=== PATIENT | female | born 1955 | race Caucasian/White ===

== ENCOUNTER 2020-09-29 11:22 | Inpatient (IN) | payer BC, MEDICARE ==
[2020-09-29] MEDS ORDERED: Sodium Chloride 0.9% 1000 ML 1,000 ML IV SCH (12:15)
[2020-09-29 12:38] LABS: ALKALINE PHOSPHATASE 57 U/L (38-126); ANION GAP 17.1 MEQ/L (5-15); BLOOD UREA NITROGEN 9 mg/dL (7-17); CHLORIDE 98 mmol/L (98-107); Calcium 9.2 mg/dL (8.4-10.2); Carbon Dioxide 21 mmol/L (22-30); Creatinine 1 0.55 mg/dL (0.52-1.04); EST GLOMERULAR FILTRATION RATE > 60.0 ML/MIN; Glucose 123 mg/dL (74-106); LDH-LACTATE DEHYDROGENASE 383 U/L (120-246); Potassium 3.8 mmol/L (3.5-5.1); SGOT/AST 50 U/L (14-36); SGPT/ALT 25 U/L (0-35); SODIUM 133 mmol/L (137-145); Total Protein 7.6 g/dL (6.3-8.2)
--- NOTE | 2020-09-29 12:40 | XRAY ---
Indication: Short of breath and cough. Positive Covid 19. Comparison: None Portable chest demonstrates small right base calcified granuloma. Remaining heart and lungs unremarkable. Bony thorax intact. Impression: Nonacute chest. Incidental old granulomatous disease.
[2020-09-29 13:00] LABS: Hematocrit 37.1 % (35-47); Hemoglobin 11.7 gm/dl (12.0-16.0); Mean Cell Volume 85.5 fl (78-100); Mean Corpuscular Hgb Concent. 31.5 g/dl (32-36); Mean Platelet Volume 10.7 fl (7.5-11.0); Platelet Count 282 K/mm3 (150-450); Red Blood Count 4.34 M/mm3 (4.1-5.4); Red Cell Distribution Width 14.4 % (11.5-14.0); White Blood Count 8.9 K/mm3 (4.0-10.5)
--- NOTE | 2020-09-29 13:04 | ERPHSYRPT ---
- History of Present Illness Time Seen by Provider: 09/29/20 12:10 Source: patient Exam Limitations: no limitations Patient Subjective Stated Complaint: pt here for covid,she is sob, cough, fever since 09/21/2020. Triage Nursing Assessment: pt alert, resp easy, skin w/d/p. face mask in place, abd soft, no edema noted, Physician History: This is a 65-year-old white female history of elevated cholesterol and hypertension who was diagnosed with COVID-19 infection on 09/21/2020. In the last week or so her symptoms of sore throat, cough and shortness of breath have increased. Patient arrives from home and had a room air oxygenation level of 89%. When 2 L oxygen was placed upon her her oxygen saturation went up to 95%. She is mildly tachycardic. She has no nausea vomiting or diarrhea. She has no chest pain. She has no fever. Patient's is very ill and is on a ventilator with COVID-19 infection. Timing/Duration: today Activities at Onset: none Severity of Dyspnea-Max: moderate Possible Cause: no prior episodes Modifying Factors: Improves With: activity (Worsens), oxygen (Improves) Home Medications: Atorvastatin Calcium 1 ea DAILY 09/29/20 [History] lisinopriL [Lisinopril] 09/29/20 [History] Hx Influenza Vaccination/Date Given: Yes Hx Pneumococcal Vaccination/Date Given: No Immunizations Up to Date: Yes Travel Risk - International Travel Have you traveled outside of the country in past 3 weeks: No - Coronavirus Screening Symptoms: Fever, Cough: New Onset, Shortness of Breath Close contact with a COVID-19 positive Pt in past 14-21 Days: Yes - Vaccine Status Have you recieved a Covid-19 vaccination: No - Review of Systems Constitutional: Weakness Eyes: No Symptoms (Mild) Ears, Nose, & Throat: No Symptoms Respiratory: Cough, Dyspnea Cardiac: No Symptoms Abdominal/Gastrointestinal: No Symptoms Genitourinary Symptoms: No Symptoms Musculoskeletal: No Symptoms Skin: No Symptoms Neurological: No Symptoms Psychological: No Symptoms Endocrine: No Symptoms Hematologic/Lymphatic: No Symptoms Immunological/Allergic: No Symptoms All Other Systems: Reviewed and Negative - Past Medical History Pertinent Past Medical History: Yes Cardiac History: High Cholesterol, Hypertension - Past Surgical History Past Surgical History: No - Social History Smoking Status: Never smoker Exposure to second hand smoke: No Drug Use: none Patient Lives Alone: No - Female History Hx Last Menstrual Period: post - Nursing Vital Signs Nursing Vital Signs: Initial Vital Signs Temperature 97.2 F 09/29/20 11:45 Pulse Rate 113 H 09/29/20 11:45 Respiratory Rate 20 09/29/20 11:45 Blood Pressure 136/104 09/29/20 11:45 O2 Sat by Pulse Oximetry 89 L 09/29/20 11:45 Pain Scale Pain Intensity 0 - Physical Exam General Appearance: mild distress, alert, anxiety Eye Exam: PERRL/EOMI, eyes nml inspection Ears, Nose, Throat Exam: hearing grossly normal, normal ENT inspection, normal pharynx Neck Exam: normal inspection, non-tender, supple, full range of motion Respiratory Exam: normal breath sounds, lungs clear, airway intact, No chest tenderness, No respiratory distress Cardiovascular/Chest Exam: tachycardia Abdominal/Gastrointestinal Exam: soft, normal bowel sounds, No tenderness Extremity Exam: non-tender, normal range of motion, normal inspection, normal capillary refill, no calf tenderness, no pedal edema, pelvis stable Neurologic Exam: alert, oriented x 3, cooperative, lab tech II-XII nml as tested, normal mood/affect, nml cerebellar function, nml station & gait, sensation nml Skin Exam: normal color, warm, dry Lymphatic Exam: No adenopathy SpO2 Interpretation: normal SpO2: 96 O2 Delivery: Nasal Cannula - Course Nursing assessment & vital signs reviewed: Yes EKG Interpreted by Me: RATE ([id number]), Sinus Tach, NORMAL AXIS, NORMAL INTERVALS, NORMAL QRS, NORMAL ST-T, Other (No acute ischemic changes. No comparison EKG available.) Ordered Tests: Active Orders 24 hr Category Date Time Status Cupboard Builder STAT Care 09/29/20 12:08 Active EKG-ER Only STAT Care 09/29/20 12:07 Active EKG-ER Only STAT Care 09/29/20 12:07 Active IV Insertion STAT Care 09/29/20 12:07 Active Isolation, Initiate & Maintain STAT Care 09/29/20 12:07 Active Pulse Oximetry (ED) ROUTINE Care 09/29/20 12:08 Active Pulse Oximetry (ED) STAT Care 09/29/20 12:07 Active CHEST 1 VIEW (PORTABLE) Stat Exams 09/29/20 12:07 Completed BLOOD CULTURE Stat Lab 09/29/20 12:45 Received CBC W DIFF Stat Lab 09/29/20 12:00 Completed CMP Stat Lab 09/29/20 12:00 Completed Ferritin Stat Lab 09/29/20 12:00 Completed LDH-LACTATE DEHYDROGENASE Stat Lab 09/29/20 12:00 Completed Lactic Acid Stat Lab 09/29/20 12:25 Completed Manual Differential NC Stat Lab 09/29/20 12:00 Completed Evangeline Screen Stat Lab 09/29/20 12:00 Completed TROPONIN Q3H Lab 09/29/20 12:00 Completed TROPONIN Q3H Lab 09/29/20 15:15 Ordered TROPONIN Q3H Lab 09/29/20 18:15 Ordered TROPONIN Q3H Lab 09/29/20 21:15 Ordered TROPONIN Q3H Lab 09/30/20 00:15 Ordered Medication Summary Generic Name Dose Route Start Last Admin Trade Name Freq PRN Reason Stop Dose Admin Sodium Chloride 1,000 mls @ 50 mls/hr 09/29/20 12:15 09/29/20 12:22 Sodium Chloride 0.9% 1000 Ml IV 10/29/20 12:14 50 mls/hr .Q20H MALCOLM Administration Lab/Rad Data: Laboratory Result Diagrams 09/29/20 12:00 09/29/20 12:00 Laboratory Results 09/29/20 09/29/20 09/29/20 Range/Units 12:25 12:00 12:00 WBC (4.0-10.5) K/mm3 RBC (4.1-5.4) M/mm3 Hgb (12.0-16.0) gm/dl Hct (35-47) % MCV (78-100) fl MCH (26-32) pg MCHC (32-36) g/dl RDW (11.5-14.0) % Plt Count (150-450) K/mm3 MPV (7.5-11.0) fl Sodium (137-145) mmol/L Potassium (3.5-5.1) mmol/L Chloride (98-107) mmol/L Carbon Dioxide (22-30) mmol/L Anion Gap (5-15) MEQ/L BUN (7-17) mg/dL Creatinine (0.52-1.04) mg/dL Estimated GFR ML/MIN Glucose (74-106) mg/dL Lactic Acid 1.5 (0.4-2.0) Calcium (8.4-10.2) mg/dL Ferritin 730 H (11.1-264) ng/mL Total Bilirubin (0.2-1.3) mg/dL AST (14-36) U/L ALT (0-35) U/L Alkaline Phosphatase (38-126) U/L Lactate Dehydrogenase (120-246) U/L Troponin I (0.000-0.034) ng/mL Serum Total Protein (6.3-8.2) g/dL Albumin (3.5-5.0) g/dL Monoscreen POSITIVE (Negative) 09/29/20 09/29/20 09/29/20 Range/Units 12:00 12:00 12:00 WBC 8.9 (4.0-10.5) K/mm3 RBC 4.34 (4.1-5.4) M/mm3 Hgb 11.7 L (12.0-16.0) gm/dl Hct 37.1 (35-47) % MCV 85.5 (78-100) fl MCH 27.0 (26-32) pg MCHC 31.5 L (32-36) g/dl RDW 14.4 H (11.5-14.0) % Plt Count 282 (150-450) K/mm3 MPV 10.7 (7.5-11.0) fl Sodium 133 L (137-145) mmol/L Potassium 3.8 (3.5-5.1) mmol/L Chloride 98 (98-107) mmol/L Carbon Dioxide 21 L (22-30) mmol/L Anion Gap 17.1 H (5-15) MEQ/L BUN 9 (7-17) mg/dL Creatinine 0.55 (0.52-1.04) mg/dL Estimated GFR > 60.0 ML/MIN Glucose 123 H (74-106) mg/dL Lactic Acid (0.4-2.0) Calcium 9.2 (8.4-10.2) mg/dL Ferritin (11.1-264) ng/mL Total Bilirubin 0.60 (0.2-1.3) mg/dL AST 50 H (14-36) U/L ALT 25 (0-35) U/L Alkaline Phosphatase 57 (38-126) U/L Lactate Dehydrogenase 383 H (120-246) U/L Troponin I < 0.012 (0.000-0.034) ng/mL Serum Total Protein 7.6 (6.3-8.2) g/dL Albumin 4.0 (3.5-5.0) g/dL Monoscreen (Negative) - Progress Progress: improved, re-examined Air Movement: fair Progress Note: 09/29/20 14:42 Chest x-ray shows no acute cardiopulmonary process Blood Culture(s) Obtained: Yes Discussed with : Martinez Counseled pt/family regarding: lab results, diagnosis, need for follow-up, rad results - Departure Departure Disposition: In-patient Admission Clinical Impression: COVID-19 virus infection, Hypoxia Condition: Fair Critical Care Time: Yes Critical Care Time(excluding separately billable procedures): Critical 30-74 mins Referrals: HENRIETTA BIRD MD [Primary Care Provider] -
[2020-09-29] MEDS ORDERED: Zofran 4 MG/2 ML VIAL IV PRN (15:48)
[2020-09-29] MEDS ORDERED: REMDESIVIR 200 MG in Sodium Chloride 0.9% 250 ML 250 ML IV ONE ×2 (15:48→16:15)
[2020-09-29 16:07] LABS: BAND 1 % (0.0-2.0); Eosinophil 1 % (0.00-3.0); Lymphocytes 10 % (24-44); Monocyte 1 % (0.0-12.0); Neutrophils 87 % (36.0-66.0); Platelet Estimate NORMAL (NORMAL); Total Cells Counted 100; Toxic Granulation 1+
[2020-09-29] MEDS: Sodium Chloride 0.9% 1000 ML 1,000 ML IV SCH (16:56)
[2020-09-29] MEDS: Zestril 10 MG PO SCH (17:17)
[2020-09-29] MEDS: Zocor 10MG PO SCH (17:17)
[2020-09-29] MEDS: TYLENOL 325 MG PO PRN ×2 (17:18→21:27)
[2020-09-29] MEDS: DECADRON 10MG INJ. IV SCH (21:27)
[2020-09-30 05:24] LABS: Absolute Neutrophil Ct (ANC) 4.94 (1.4-6.9); BASOPHIL % 0.2 % (0.0-0.4); Basophil (Absolute #) 0.01 (0-0.4); Eosinophil (Absolute #) 0 (0-0.5); Hematocrit 39.2 % (35-47); Hemoglobin 12.3 gm/dl (12.0-16.0); Lymphocyte (Absolute #) 0.63 (1.0-4.6); Lymphocytes % 11.1 % (24.0-44.0); Mean Cell Volume 86.5 fl (78-100); Mean Corpuscular Hemoglobin 27.2 pg (26-32); Mean Corpuscular Hgb Concent. 31.4 g/dl (32-36); Mean Platelet Volume 10.5 fl (7.5-11.0); Monocytes % 1.8 % (0.0-12.0); Neutrophil % 86.9 % (36.0-66.0); Platelet Count 316 K/mm3 (150-450); Red Blood Count 4.53 M/mm3 (4.1-5.4); Red Cell Distribution Width 14.5 % (11.5-14.0); White Blood Count 5.7 K/mm3 (4.0-10.5)
[2020-09-30 05:40] LABS: ALBUMIN 3.8 g/dL (3.5-5.0); ALKALINE PHOSPHATASE 59 U/L (38-126); ANION GAP 13.9 MEQ/L (5-15); BLOOD UREA NITROGEN 9 mg/dL (7-17); CHLORIDE 106 mmol/L (98-107); Calcium 8.6 mg/dL (8.4-10.2); Carbon Dioxide 22 mmol/L (22-30); Creatinine 1 0.51 mg/dL (0.52-1.04); EST GLOMERULAR FILTRATION RATE > 60.0 ML/MIN; Glucose 182 mg/dL (74-106); Potassium 4.2 mmol/L (3.5-5.1); SGOT/AST 47 U/L (14-36); SGPT/ALT 28 U/L (0-35); SODIUM 138 mmol/L (137-145); Total Protein 7.3 g/dL (6.3-8.2)
[2020-09-30] MEDS: DECADRON 10MG INJ. IV SCH ×2 (09:03→21:02)
[2020-09-30] MEDS: Sodium Chloride 0.9% 1000 ML 1,000 ML IV SCH (09:03)
[2020-09-30] MEDS: ROCEPHIN 1 Gm-D5w 50 ml Bag** 1 G/50 ML IVPB IV SCH (11:08)
--- NOTE | 2020-09-30 11:28 | XRAY ---
Indication: Short of breath. Positive Covid 19. Multiple contiguous axial images obtained through the chest prior to and following 80 cc Isovue 370 contrast. Comparison: None There is moderate diffuse bilateral peripheral groundglass airspace disease greatest in both lower lobes. No consolidation or effusion. Subcentimeter right lower lobe calcified granuloma. Heart not enlarged. Aorta is normal in course and caliber. No pathologic mediastinal/hilar lymphadenopathy. Bony thorax intact with minimal degenerative changes throughout the spine. Limited upper abdomen demonstrates mild fatty liver and a few tiny hepatic/splenic calcified granulomas. Impression: 1. Diffuse bilateral peripheral groundglass airspace disease. Commonly reported imaging features of Covid 19 pneumonia are present. Other processes such as influenza pneumonia and organizing pneumonia, as can be seen with drug toxicity and connective tissue disease, can cause a similar imaging pattern. 2. Incidental fatty liver and old granulomatous disease.
--- NOTE | 2020-09-30 12:45 | PCM.HP ---
History of Present Illness - Chief Complaint Chief Complaint: shortness of breath for 2-3 days History of Present Illness: is a 65 year old female.history of elevated cholesterol and hypertension who was diagnosed with COVID-19 infection on 09/21/2020. In the last week or so her symptoms of sore throat, cough and shortness of breath have increased. Patient arrives from home and had a room air oxygenation level of 89%. When 2 L oxygen was placed upon her her oxygen saturation went up to 95%. She is mildly tachycardic. She has no nausea vomiting or diarrhea. She has no chest pain. She has no fever. Patient's is very ill and is on a ventilator with COVID-19 infection. - Review of Systems Constitutional: No Fever, No Chills Eyes: No Symptoms Ears, Nose, & Throat: No Symptoms Respiratory: Cough, Orthopnea, Short Of Breath, Wheezing Cardiac: No Chest Pain, No Edema, No Syncope Abdominal/Gastrointestinal: No Abdominal Pain, No Nausea, No Vomiting, No Diarrhea Genitourinary Symptoms: No Dysuria Musculoskeletal: No Back Pain, No Neck Pain Skin: No Rash Neurological: No Dizziness, No Focal Weakness, No Sensory Changes Psychological: No Symptoms Endocrine: No Symptoms Hematologic/Lymphatic: No Symptoms Immunological/Allergic: No Symptoms Medications & Allergies Home Medications: Home Medication List Atorvastatin Calcium 10 mg PO 1700 09/29/20 [History Confirmed 09/29/20] lisinopriL [Lisinopril] 10 mg PO 1700 09/29/20 [History Confirmed 09/29/20] Allergies/Adverse Reactions: Allergies Allergy/AdvReac Type Severity Reaction Status Date / Time NKA Allergy Verified 09/29/20 16:06 - Past Medical History Past Medical History: Yes Cardiac History: High Cholesterol, Hypertension - Female History Hx Last Menstrual Period: post Are you now?: No - Past Surgical History Past Surgical History: No - Social History Smoking Status: Never smoker Exposure to second hand smoke: No Alcohol: None Drug Use: none - Physical Exam Vital Signs: Vital Signs - 24 hr Temp Pulse Resp BP Pulse Ox 09/30/20 12:00 97.3 F 106 H 16 146/78 94 L 09/30/20 10:00 102 H 20 91 L 09/30/20 08:45 20 09/30/20 08:00 96.7 F 104 H 20 145/71 92 L 09/30/20 06:00 78 18 95 09/30/20 04:00 97 F 74 18 144/72 99 09/30/20 01:01 74 20 100 09/30/20 00:00 97.9 F 78 12 106/66 98 09/29/20 23:47 81 22 97 09/29/20 22:00 20 09/29/20 21:48 104 H 21 97 09/29/20 20:00 97.8 F 98 H 16 136/71 99 09/29/20 18:00 86 18 97 09/29/20 16:10 101 H 24 95 09/29/20 15:50 99.1 F 102 H 12 114/55 91 L 09/29/20 15:14 104 H 22 114/55 95 09/29/20 14:49 96 09/29/20 14:49 106 H 20 156/79 92 L 09/29/20 13:20 102 H 20 149/81 97 09/29/20 12:48 109 H 20 157/82 96 09/29/20 12:47 89 L General Appearance: moderate distress, alert Neurologic Exam: alert, oriented x 3, cooperative, No motor deficits Eye Exam: PERRL/EOMI, eyes nml inspection Ears, Nose, Throat Exam: normal ENT inspection, TMs normal, pharynx normal, moist mucous membranes Neck Exam: normal inspection, non-tender, supple, full range of motion Respiratory Exam: diminished breath sounds, accessory muscle use, crackles/rales, rhonchi, wheezing, No respiratory distress Cardiovascular Exam: regular rate/rhythm, normal heart sounds, normal peripheral pulses Gastrointestinal/Abdomen Exam: soft, normal bowel sounds, No tenderness, No mass Back Exam: normal inspection, normal range of motion, No CVA tenderness, No vertebral tenderness Extremity Exam: normal inspection, normal range of motion, pelvis stable Skin Exam: normal color, warm, dry, No rash Lymphatic Exam: No adenopathy Results - Labs Lab/Micro Results: Lab Results-Last 24 Hours 09/29/20 09/29/20 09/29/20 Range/Units 12:00 12:00 12:00 WBC 8.9 (4.0-10.5) K/mm3 RBC 4.34 (4.1-5.4) M/mm3 Hgb 11.7 L (12.0-16.0) gm/dl Hct 37.1 (35-47) % MCV 85.5 (78-100) fl MCH 27.0 (26-32) pg MCHC 31.5 L (32-36) g/dl RDW 14.4 H (11.5-14.0) % Plt Count 282 (150-450) K/mm3 MPV 10.7 (7.5-11.0) fl Gran % (36.0-66.0) % Eos # (Auto) (0-0.5) Absolute Lymphs (auto) (1.0-4.6) Absolute Monos (auto) (0.0-1.3) Lymphocytes % (24.0-44.0) % Monocytes % (0.0-12.0) % Eosinophils % (0.00-5.0) % Basophils % (0.0-0.4) % Absolute Granulocytes (1.4-6.9) Segmented Neutrophils 87 H (36.0-66.0) % Band Neutrophils 1 (0.0-2.0) % Lymphocytes (Manual) 10 L (24-44) % Monocytes (Manual) 1 (0.0-12.0) % Eosinophils (Manual) 1 (0.00-3.0) % Basophils # (0-0.4) Toxic Granulation 1+ Platelet Estimate NORMAL (NORMAL) RBC Morphology NORMAL Sodium 133 L (137-145) mmol/L Potassium 3.8 (3.5-5.1) mmol/L Chloride 98 (98-107) mmol/L Carbon Dioxide 21 L (22-30) mmol/L Anion Gap 17.1 H (5-15) MEQ/L BUN 9 (7-17) mg/dL Creatinine 0.55 (0.52-1.04) mg/dL Estimated GFR > 60.0 ML/MIN Glucose 123 H (74-106) mg/dL Calcium 9.2 (8.4-10.2) mg/dL Ferritin (11.1-264) ng/mL Total Bilirubin 0.60 (0.2-1.3) mg/dL AST 50 H (14-36) U/L ALT 25 (0-35) U/L Alkaline Phosphatase 57 (38-126) U/L Lactate Dehydrogenase 383 H (120-246) U/L Troponin I < 0.012 (0.000-0.034) ng/mL Serum Total Protein 7.6 (6.3-8.2) g/dL Albumin 4.0 (3.5-5.0) g/dL Monoscreen (Negative) 09/29/20 09/29/20 09/29/20 Range/Units 12:00 12:00 15:16 WBC (4.0-10.5) K/mm3 RBC (4.1-5.4) M/mm3 Hgb (12.0-16.0) gm/dl Hct (35-47) % MCV (78-100) fl MCH (26-32) pg MCHC (32-36) g/dl RDW (11.5-14.0) % Plt Count (150-450) K/mm3 MPV (7.5-11.0) fl Gran % (36.0-66.0) % Eos # (Auto) (0-0.5) Absolute Lymphs (auto) (1.0-4.6) Absolute Monos (auto) (0.0-1.3) Lymphocytes % (24.0-44.0) % Monocytes % (0.0-12.0) % Eosinophils % (0.00-5.0) % Basophils % (0.0-0.4) % Absolute Granulocytes (1.4-6.9) Segmented Neutrophils (36.0-66.0) % Band Neutrophils (0.0-2.0) % Lymphocytes (Manual) (24-44) % Monocytes (Manual) (0.0-12.0) % Eosinophils (Manual) (0.00-3.0) % Basophils # (0-0.4) Toxic Granulation Platelet Estimate (NORMAL) RBC Morphology Sodium (137-145) mmol/L Potassium (3.5-5.1) mmol/L Chloride (98-107) mmol/L Carbon Dioxide (22-30) mmol/L Anion Gap (5-15) MEQ/L BUN (7-17) mg/dL Creatinine (0.52-1.04) mg/dL Estimated GFR ML/MIN Glucose (74-106) mg/dL Calcium (8.4-10.2) mg/dL Ferritin 730 H (11.1-264) ng/mL Total Bilirubin (0.2-1.3) mg/dL AST (14-36) U/L ALT (0-35) U/L Alkaline Phosphatase (38-126) U/L Lactate Dehydrogenase (120-246) U/L Troponin I < 0.012 (0.000-0.034) ng/mL Serum Total Protein (6.3-8.2) g/dL Albumin (3.5-5.0) g/dL Monoscreen POSITIVE (Negative) 09/30/20 09/30/20 09/30/20 Range/Units 04:49 04:49 04:49 WBC 5.7 (4.0-10.5) K/mm3 RBC 4.53 (4.1-5.4) M/mm3 Hgb 12.3 (12.0-16.0) gm/dl Hct 39.2 (35-47) % MCV 86.5 (78-100) fl MCH 27.2 (26-32) pg MCHC 31.4 L (32-36) g/dl RDW 14.5 H (11.5-14.0) % Plt Count 316 (150-450) K/mm3 MPV 10.5 (7.5-11.0) fl Gran % 86.9 H (36.0-66.0) % Eos # (Auto) 0 (0-0.5) Absolute Lymphs (auto) 0.63 L (1.0-4.6) Absolute Monos (auto) 0.10 (0.0-1.3) Lymphocytes % 11.1 L (24.0-44.0) % Monocytes % 1.8 (0.0-12.0) % Eosinophils % 0.0 (0.00-5.0) % Basophils % 0.2 (0.0-0.4) % Absolute Granulocytes 4.94 (1.4-6.9) Segmented Neutrophils (36.0-66.0) % Band Neutrophils (0.0-2.0) % Lymphocytes (Manual) (24-44) % Monocytes (Manual) (0.0-12.0) % Eosinophils (Manual) (0.00-3.0) % Basophils # 0.01 (0-0.4) Toxic Granulation Platelet Estimate (NORMAL) RBC Morphology Sodium 138 (137-145) mmol/L Potassium 4.2 (3.5-5.1) mmol/L Chloride 106 (98-107) mmol/L Carbon Dioxide 22 (22-30) mmol/L Anion Gap 13.9 (5-15) MEQ/L BUN 9 (7-17) mg/dL Creatinine 0.51 L (0.52-1.04) mg/dL Estimated GFR > 60.0 ML/MIN Glucose 182 H (74-106) mg/dL Calcium 8.6 (8.4-10.2) mg/dL Ferritin (11.1-264) ng/mL Total Bilirubin 0.50 (0.2-1.3) mg/dL AST 47 H (14-36) U/L ALT 28 (0-35) U/L Alkaline Phosphatase 59 (38-126) U/L Lactate Dehydrogenase (120-246) U/L Troponin I < 0.012 (0.000-0.034) ng/mL Serum Total Protein 7.3 (6.3-8.2) g/dL Albumin 3.8 (3.5-5.0) g/dL Monoscreen (Negative) Microbiology 09/29/20 12:45 Blood Culture Gram Stain - Final Blood - Radiology Impressions Radiology Exams & Impressions: Radiology Procedures Category Date Time Status CHEST 1 VIEW (PORTABLE) Stat Exams 09/29/20 12:07 Completed CHEST W/WO CONTRAST [CT] Urgent Exams 09/30/20 09:[address]/CHEST W/WO CONTRAST Indication: Short of breath. Positive Covid 19. Multiple contiguous axial images obtained through the chest prior to and following 80 cc Isovue 370 contrast. Comparison: None There is moderate diffuse bilateral peripheral groundglass airspace disease greatest in both lower lobes. No consolidation or effusion. Subcentimeter right lower lobe calcified granuloma. Heart not enlarged. Aorta is normal in course and caliber. No pathologic mediastinal/hilar lymphadenopathy. Bony thorax intact with minimal degenerative changes throughout the spine. Limited upper abdomen demonstrates mild fatty liver and a few tiny hepatic/splenic calcified granulomas. Impression: 1. Diffuse bilateral peripheral groundglass airspace disease. Commonly reported imaging features of Covid 19 pneumonia are present. Other processes such as influenza pneumonia and organizing pneumonia, as can be seen with drug toxicity and connective tissue disease, can cause a similar imaging pattern. 2. Incidental fatty liver and old granulomatous disease. - Other Procedures and Tests Respiratory Therapy 09/29/20 15:48 Oxygen Nasal Cannula 2 lpm Assessment/Plan (1) Pneumonia due to COVID-19 virus Current Visit: Yes Status: Acute Assessment & Plan: Chief Complaint Diagnosis covid infection, hypoxia Allergies Allergy/AdvReac Type Severity Reaction Status Date / Time NKA Allergy Verified 09/29/20 16:06 Vital Signs (Last 24 hours) Temp Pulse Resp BP Pulse Ox 09/30/20 12:00 97.3 F 106 H 16 146/78 94 L 09/30/20 10:00 102 H 20 91 L 09/30/20 08:45 20 09/30/20 08:00 96.7 F 104 H 20 145/71 92 L 09/30/20 06:00 78 18 95 09/30/20 04:00 97 F 74 18 144/72 99 09/30/20 01:01 74 20 100 09/30/20 00:00 97.9 F 78 12 106/66 98 09/29/20 23:47 81 22 97 09/29/20 22:00 20 09/29/20 21:48 104 H 21 97 09/29/20 20:00 97.8 F 98 H 16 136/71 99 09/29/20 18:00 86 18 97 09/29/20 16:10 101 H 24 95 09/29/20 15:50 99.1 F 102 H 12 114/55 91 L 09/29/20 15:14 104 H 22 114/55 95 09/29/20 14:49 96 09/29/20 14:49 106 H 20 156/79 92 L 09/29/20 13:20 102 H 20 149/81 97 Home Medications Medication Instructions Recorded Confirmed Last Taken Type Atorvastatin Calcium 10 mg PO 0 09/29/20 09/29/20 09/28/20 History 10 mg lisinopriL [Lisinopril] 10 mg PO 1700 09/29/20 09/29/20 09/28/20 History Current Medications Generic Name Dose Route Start Last Admin Trade Name Freq PRN Reason Stop Dose Admin Acetaminophen 650 mg 09/29/20 15:48 09/29/20 21:27 Tylenol 325 Mg PO 10/29/20 15:47 650 mg Q4H PRN PRN Administration PAIN, FEVER, HEADACHE Dexamethasone Sodium Phosphate 8 mg 09/29/20 22:00 09/30/20 09:03 Decadron 10mg Inj. IV 10/29/20 21:59 8 mg BID MALCOLM Administration Sodium Chloride 1,000 mls @ 50 mls/hr 09/29/20 15:48 09/30/20 09:03 Sodium Chloride 0.9% 1000 Ml IV 10/29/20 15:47 50 mls/hr .Q20H MALCOLM Administration Remdesivir 100 mg/ Sodium 100 mls @ 100 mls/hr 09/30/20 15:00 Chloride IV 10/03/20 15:59 1500 MALCOLM Ceftriaxone Sodium/Dextrose 1 g in 50 mls @ 100 mls/hr 09/30/20 10:00 09/30/20 11:08 Rocephin 1 Gm-D5w 50 Ml Bag IV 10/03/20 09:59 100 mls/hr Q24H10 MALCOLM Administration Lisinopril 10 mg 09/29/20 18:00 09/29/20 17:17 Zestril 10 Mg PO 10/29/20 17:59 10 mg 1700 MALCOLM Administration Ondansetron HCl 4 mg 09/29/20 15:48 Zofran 4 Mg/2 Ml Vial IV 10/29/20 15:47 Q6H PRN PRN NAUSEA/VOMITING Simvastatin 10 mg 09/29/20 18:00 09/29/20 17:17 Zocor 10mg PO 10/29/20 17:59 10 mg 1700 MALCOLM Administration Discontinued Medications Generic Name Dose Route Start Last Admin Trade Name Freq PRN Reason Stop Dose Admin Sodium Chloride 1,000 mls @ 50 mls/hr 09/29/20 12:15 09/29/20 12:22 Sodium Chloride 0.9% 1000 Ml IV 10/29/20 12:14 50 mls/hr .Q20H MALCOLM Administration Remdesivir 200 mg/ Sodium 250 mls @ 125 mls/hr 09/29/20 15:48 09/29/20 16:57 Chloride IV 09/29/20 17:47 Not Given ONCE ONE Remdesivir 200 mg/ Sodium 250 mls @ 125 mls/hr 09/29/20 16:15 09/29/20 17:17 Chloride IV 09/29/20 18:14 125 mls/hr ONCE ONE Administration Intake & Output (Last 24 hours) 08/01/0809/29/20 09/30/20 10/01/20 11:59 11:59 11:59 11:59 Intake Total 3050 Output Total 1999 Balance 1050 Weight 62.2 kg 62.2 kg Microbiology Results (Last 24 hours) 09/29/20 12:45 Blood Blood Culture Gram Stain - Final 09/29/20 12:45 Blood Blood Culture - Pending 09/29/20 12:45 Blood Blood Culture Gram Stain - Pending 09/29/20 12:45 Blood Blood Culture - Pending Laboratory Results (Last 24 hours) 09/30/20 09/30/20 09/30/20 04:49 04:49 04:49 WBC 5.7 RBC 4.53 Hgb 12.3 Hct 39.2 MCV 86.5 MCH 27.2 MCHC 31.4 L RDW 14.5 H Plt Count 316 MPV 10.5 Gran % 86.9 H Eos # (Auto) 0 Absolute Lymphs (auto) 0.63 L Absolute Monos (auto) 0.10 Lymphocytes % 11.1 L Monocytes % 1.8 Eosinophils % 0.0 Basophils % 0.2 Absolute Granulocytes 4.94 Segmented Neutrophils Band Neutrophils Lymphocytes (Manual) Monocytes (Manual) Eosinophils (Manual) Basophils # 0.01 Toxic Granulation Platelet Estimate RBC Morphology Sodium 138 Potassium 4.2 Chloride 106 Carbon Dioxide 22 Anion Gap 13.9 BUN 9 Creatinine 0.51 L Estimated GFR > 60.0 Glucose 182 H Calcium 8.6 Ferritin Total Bilirubin 0.50 AST 47 H ALT 28 Alkaline Phosphatase 59 Troponin I < 0.012 Serum Total Protein 7.3 Albumin 3.8 Monoscreen 09/29/20 09/29/20 09/29/20 15:16 12:00 12:00 WBC RBC Hgb Hct MCV MCH MCHC RDW Plt Count MPV Gran % Eos # (Auto) Absolute Lymphs (auto) Absolute Monos (auto) Lymphocytes % Monocytes % Eosinophils % Basophils % Absolute Granulocytes Segmented Neutrophils Band Neutrophils Lymphocytes (Manual) Monocytes (Manual) Eosinophils (Manual) Basophils # Toxic Granulation Platelet Estimate RBC Morphology Sodium Potassium Chloride Carbon Dioxide Anion Gap BUN Creatinine Estimated GFR Glucose Calcium Ferritin 730 H Total Bilirubin AST ALT Alkaline Phosphatase Troponin I < 0.012 Serum Total Protein Albumin Monoscreen POSITIVE 09/29/20 09/29/20 12:00 12:00 WBC 8.9 RBC 4.34 Hgb 11.7 L Hct 37.1 MCV 85.5 MCH 27.0 MCHC 31.5 L RDW 14.4 H Plt Count 282 MPV 10.7 Gran % Eos # (Auto) Absolute Lymphs (auto) Absolute Monos (auto) Lymphocytes % Monocytes % Eosinophils % Basophils % Absolute Granulocytes Segmented Neutrophils 87 H Band Neutrophils 1 Lymphocytes (Manual) 10 L Monocytes (Manual) 1 Eosinophils (Manual) 1 Basophils # Toxic Granulation 1+ Platelet Estimate NORMAL RBC Morphology NORMAL Sodium Potassium Chloride Carbon Dioxide Anion Gap BUN Creatinine Estimated GFR Glucose Calcium Ferritin Total Bilirubin AST ALT Alkaline Phosphatase Troponin I < 0.012 Serum Total Protein Albumin Monoscreen Orders (Last 24 hours) Category Date Time Status Admit as Inpatient ROUTINE Care 09/29/20 15:48 Active Engine Mechanic STAT Care 09/29/20 12:08 Completed Code Status Order ROUTINE Care 09/29/20 15:48 Active EKG-ER Only STAT Care 09/29/20 12:07 Completed EKG-ER Only STAT Care 09/29/20 12:07 Completed IV Insertion STAT Care 09/29/20 12:07 Completed Isolation, Initiate & Maintain STAT Care 09/29/20 12:07 Completed Pulse Oximetry (ED) ROUTINE Care 09/29/20 12:08 Completed Pulse Oximetry (ED) STAT Care 09/29/20 12:07 Completed Telemetry q4h Care 09/29/20 15:48 Active Weight,Daily 0600 Care 09/29/20 15:48 Active House Regular Diet Diet 09/30/20 Breakfast Active CHEST 1 VIEW (PORTABLE) Stat Exams 09/29/20 12:07 Completed CHEST W/WO CONTRAST [CT] Urgent Exams 09/30/20 09:36 Completed BLOOD CULTURE Stat Lab 09/29/20 12:45 Received CBC W DIFF AM.LAB Lab 09/30/20 04:49 Completed CBC W DIFF Stat Lab 09/29/20 12:00 Completed CMP AM.LAB Lab 09/30/20 04:49 Completed CMP Stat Lab 09/29/20 12:00 Completed Ferritin Stat Lab 09/29/20 12:00 Completed LDH-LACTATE DEHYDROGENASE Stat Lab 09/29/20 12:00 Completed Lactic Acid Stat Lab 09/29/20 12:25 Completed Manual Differential NC Stat Lab 09/29/20 12:00 Completed Lynn Screen Stat Lab 09/29/20 12:00 Completed TROPONIN AM.LAB Lab 09/30/20 04:49 Completed TROPONIN Q3H Lab 09/29/20 12:00 Completed TROPONIN Q3H Lab 09/29/20 15:16 Completed Acetaminophen 325 mg [Tylenol 325 mg] Med 09/29/20 15:48 Active 650 mg PO Q4H PRN PRN Ceftriaxone 1 GM/50 ML PREMIX* [ROCEPHIN 1 Gm-D5w 50 ml Med 09/30/20 10:00 Active Bag] 1 g in 50 ml IV Q24H10 Dexamethasone Sod Phosphate [Decadron 10Mg Inj.] Med 09/29/20 22:00 Active 8 mg IV BID Lisinopril 10 mg [Zestril 10 MG] Med 09/29/20 18:00 Active 10 mg PO 1700 NaCl 0.9% 1000 ml [Sodium Chloride 0.9% 1000 ML] 1,000 Med 09/29/20 12:15 Discontinued ml IV 50 mls/hr NaCl 0.9% 1000 ml [Sodium Chloride 0.9% 1000 ML] 1,000 Med 09/29/20 15:48 Active ml IV 50 mls/hr Ondansetron HCl 4 mg/2 ml [Zofran 4 MG/2 ML VIAL] Med 09/29/20 15:48 Active 4 mg IV Q6H PRN PRN Remdesivir 100 mg Med 09/30/20 15:00 Active NaCl 0.9% 100Ml [Sodium Chloride 0.9% 100 ML BAG] 100 ml IV 1500 Remdesivir 200 mg Med 09/29/20 15:48 Discontinued NaCl 0.9% 250 ml [Sodium Chloride 0.9% 250 ML] 250 ml IV ONCE Remdesivir 200 mg Med 09/29/20 16:15 Discontinued NaCl 0.9% 250 ml [Sodium Chloride 0.9% 250 ML] 250 ml IV ONCE Simvastatin 10 mg [Zocor 10MG] Med 09/29/20 18:00 Active 10 mg PO 1700 EKG REPEAT IN AM RT 09/29/20 15:48 Completed Oxygen Nasal Cannula 2 lpm RT 09/29/20 15:48 Active Pulse Oximetry .continuos RT 09/29/20 16:18 Active Respiratory Therapy Consult ROUTINE RT 09/29/20 15:48 Completed Code(s): U07.1 - COVID-19; J12.82 - PNEUMONIA DUE TO CORONAVIRUS DISEASE (2) COVID-19 virus infection Current Visit: Yes Status: Acute Code(s): U07.1 - COVID-19 (3) Hypoxia Current Visit: Yes Status: Acute Code(s): R09.02 - HYPOXEMIA
[2020-09-30] MEDS: REMDESIVIR 100 MG in Sodium Chloride 0.9% 100 ML BAG 100 ML IV SCH (15:51)
[2020-09-30] MEDS: TYLENOL 325 MG PO PRN (16:10)
[2020-09-30] MEDS ORDERED: NON-FORMULARY ITEM (Atorvastatin Calcium [Atorvastatin Calcium] 10 MG) PO SCH (17:00)
[2020-09-30] MEDS: Zestril 10 MG PO SCH (18:35)
[2020-09-30] MEDS: Zocor 10MG PO SCH (18:35)
[2020-09-30] MEDS: Tums EX 750 MG PO PRN (19:43)
[2020-10-01 06:43] LABS: INR 1.21 (0.8-3.0); PROTIME 14.3 SECONDS (9.4-12.5)
[2020-10-01 06:47] LABS: ALBUMIN 3.5 g/dL (3.5-5.0); ALKALINE PHOSPHATASE 61 U/L (38-126); ANION GAP 14.7 MEQ/L (5-15); BLOOD UREA NITROGEN 11 mg/dL (7-17); CHLORIDE 108 mmol/L (98-107); Calcium 8.7 mg/dL (8.4-10.2); Carbon Dioxide 20 mmol/L (22-30); Creatinine 1 0.55 mg/dL (0.52-1.04); EST GLOMERULAR FILTRATION RATE > 60.0 ML/MIN; Glucose 189 mg/dL (74-106); Potassium 3.2 mmol/L (3.5-5.1); SGOT/AST 38 U/L (14-36); SGPT/ALT 25 U/L (0-35); SODIUM 139 mmol/L (137-145); Total Protein 6.9 g/dL (6.3-8.2)
[2020-10-01] MEDS: DECADRON 10MG INJ. IV SCH ×2 (08:32→21:02)
[2020-10-01] MEDS: TYLENOL 325 MG PO PRN (08:32)
[2020-10-01] MEDS: ROCEPHIN 1 Gm-D5w 50 ml Bag** 1 G/50 ML IVPB IV SCH (10:32)
[2020-10-01] MEDS: REMDESIVIR 100 MG in Sodium Chloride 0.9% 100 ML BAG 100 ML IV SCH (15:28)
[2020-10-01] MEDS: Zocor 10MG PO SCH (18:27)
[2020-10-01] MEDS: Zestril 10 MG PO SCH (18:27)
[2020-10-01] MEDS: Tums EX 750 MG PO PRN (18:28)
[2020-10-01] MEDS: Sodium Chloride 0.9% 1000 ML 1,000 ML IV SCH (19:48)
[2020-10-02 06:34] LABS: Hematocrit 36.2 % (35-47); Hemoglobin 11.5 gm/dl (12.0-16.0); Mean Cell Volume 85.4 fl (78-100); Mean Corpuscular Hemoglobin 27.1 pg (26-32); Mean Corpuscular Hgb Concent. 31.8 g/dl (32-36); Mean Platelet Volume 9.9 fl (7.5-11.0); Platelet Count 439 K/mm3 (150-450); Red Blood Count 4.24 M/mm3 (4.1-5.4); Red Cell Distribution Width 14.5 % (11.5-14.0); White Blood Count 17.6 K/mm3 (4.0-10.5)
[2020-10-02 06:49] LABS: ALBUMIN 3.4 g/dL (3.5-5.0); ALKALINE PHOSPHATASE 59 U/L (38-126); ANION GAP 12.6 MEQ/L (5-15); BLOOD UREA NITROGEN 15 mg/dL (7-17); CHLORIDE 107 mmol/L (98-107); Calcium 8.4 mg/dL (8.4-10.2); Carbon Dioxide 21 mmol/L (22-30); Creatinine 1 0.59 mg/dL (0.52-1.04); EST GLOMERULAR FILTRATION RATE > 60.0 ML/MIN; Glucose 184 mg/dL (74-106); INR 1.27 (0.8-3.0); Potassium 3.4 mmol/L (3.5-5.1); SGOT/AST 34 U/L (14-36); SGPT/ALT 24 U/L (0-35); SODIUM 137 mmol/L (137-145); Total Protein 6.6 g/dL (6.3-8.2)
[2020-10-02] MEDS: DECADRON 10MG INJ. IV SCH (10:08)
[2020-10-02] MEDS: REMDESIVIR 100 MG in Sodium Chloride 0.9% 100 ML BAG 100 ML IV SCH (10:32)
[2020-10-02 11:52] VITALS: BP 153/88; PULSE 76; O2SAT 96
== END 2020-10-02 12:30 | disposition home or self-care (01) | DRG 179 ==
LOC: ED 11:22 → MED SURG 15:25
PROVIDERS: ADMIT General Practice; ATTEND General Practice
DX: U07.1 COVID-19 (principal); J12.82 Pneumonia due to coronavirus disease 2019; R09.02 Hypoxemia; I10 Essential (primary) hypertension; E78.00 Pure hypercholesterolemia, unspecified; Z79.899 Other long term (current) drug therapy
CPT/HCPCS: 36000; 36415; 71045; 71270; 80053; 82728; 83605; 83615; 84484; 85025; 85027; 85379; 85610; 86308; 87040; 93005; 93041; 94760; 94762; 99285; 99291; J0696; J1100; A9270-GY

== ENCOUNTER 2020-10-07 09:14 | Emergency (ER) | payer BC, MEDICARE ==
[2020-10-07 10:00] LABS: A-aADO2 38; ABG HEMOGLOBIN 14.5; ABG POTASSIUM 4.2 (3.5-5.1); ABG SITE LEFT RADIAL; ALLEN TEST OK? YES; ARTERIAL BLD GAS O2 SATURATION 96.5 % (95-100); ARTERIAL BLOOD GAS BASE EXCESS -0.2 (-2.0-2.0); ARTERIAL BLOOD GAS FIO2 21 %; ARTERIAL BLOOD GAS PCO2 29 mmHg (35-45); ARTERIAL BLOOD GAS PO2 75 mmHg (75-100); ARTERIAL BLOOD GAS pH 7.49 (7.35-7.45); CARBOXYHEMOGLOBIN 0.7 % THgb (0.0-6.9); HCO3- 22.1 (22-28); HGB O2 SAT 94.6 g/dF (94-100); Methhemoglobin 1.2 % (1.4-1.5)
--- NOTE | 2020-10-07 10:02 | XRAY ---
Indication: Short of breath. Positive Covid 19. Comparison: September 29, 2020. Portable chest demonstrates new left mid to lower lung and lesser degree right base airspace disease without consolidation/large effusion. Remaining heart and bony thorax unremarkable again with incidental right base calcified granuloma.
--- NOTE | 2020-10-07 10:23 | ERPHSYRPT ---
- History of Present Illness Time Seen by Provider: 10/07/20 09:30 Source: patient, family Exam Limitations: no limitations Patient Subjective Stated Complaint: pt is covid positive as well as her son who lives with her, her also had covid and 10/02/20 at [facility]. pt doesnt have any specific complaints she would just like to be checked out. pt states her O2 at home is ranging from 89-95%. pt was seen here last week and had a short admission. pt denies any shortness of breath or chest pain. Triage Nursing Assessment: pt is aox3, pt able to speak in full sentences, pupils perrl, afebrile, pt appears in no acute stress at this time, resps easy and non labored, cap refill < 3 seconds, radial pulses strong and equal, pt skin appears pink warm dry. Physician History: This is a 65-year-old white female patient of Dr. Bird who was diagnosed with COVID-19 infection on 09/21/2020. She was seen here in the emergency department on 09/29/2020 and was admitted in the hospital for 3-day stay. She was discharged home on 10/02/2020 and has been on 2 L of oxygen via nasal cannula. Patient has a history of COPD and hypertension. She has been diagnosed with elevated cholesterol and hypertension in the past. Because of her pulse oximeter reading 89 to 95% depending on the level activity at home on 2 L oxygen, the patient and her son became a little worried and wanted to be checked out. The patient's recently secondary to COVID-19 infection. Patient states that she actually feels well and has been eating. She has no chest pain and she is not particularly short of breath. Timing/Duration: today Severity: mild Associated Symptoms: denies symptoms Allergies/Adverse Reactions: NKA Allergy (Verified 10/07/20 09:38) Home Medications: Atorvastatin Calcium 10 mg PO 1700 09/29/20 [History] lisinopriL [Lisinopril] 10 mg PO 0 09/29/20 [History] Hx Tetanus, Diphtheria Vaccination/Date Given: Yes Hx Influenza Vaccination/Date Given: No Hx Pneumococcal Vaccination/Date Given: No Immunizations Up to Date: Yes Travel Risk - International Travel Have you traveled outside of the country in past 3 weeks: No - Coronavirus Screening Symptoms: Shortness of Breath Close contact with a COVID-19 positive Pt in past 14-21 Days: Yes - Vaccine Status Have you recieved a Covid-19 vaccination: No - Past Medical History Pertinent Past Medical History: Yes Cardiac History: High Cholesterol, Hypertension - Past Surgical History Past Surgical History: No - Social History Smoking Status: Never smoker Exposure to second hand smoke: No Drug Use: none Patient Lives Alone: No - Nursing Vital Signs Nursing Vital Signs: Initial Vital Signs Temperature 98.5 F 10/07/20 09:27 Pulse Rate 126 H 10/07/20 09:27 Respiratory Rate 22 10/07/20 09:27 Blood Pressure 155/85 10/07/20 09:27 O2 Sat by Pulse Oximetry 82 L 10/07/20 09:27 Pain Scale Pain Intensity 0 - Physical Exam SpO2: 82 - Course Nursing assessment & vital signs reviewed: Yes Ordered Tests: Active Orders 24 hr Category Date Time Status CHEST 1 VIEW (PORTABLE) Stat Exams 10/07/20 09:29 Completed ABG [ARTERIAL BLOOD GASES] Stat Lab 10/07/20 09:30 Completed Lab/Rad Data: Laboratory Results 10/07/20 Range/Units 09:30 Puncture Site LEFT RADIAL pCO2 29 L (35-45) mmHg pO2 75 (75-100) mmHg Base Excess -0.2 (-2.0-2.0) O2 Saturation 94.6 (94-100) g/dF ABG pH 7.49 H (7.35-7.45) ABG HCO3 22.1 (22-28) ABG O2 Sat (Measured) 96.5 (95-100) % R[place] Test YES A-a Gradient 38 a/A Ratio 0.66 Hemoglobin 14.5 Carboxyhemoglobin 0.7 (0.0-6.9) % THgb Methemoglobin 1.2 L (1.4-1.5) % Potassium 4.2 (3.5-5.1) Temperature 37.0 C POC O2 Flow Rate 21 % - Progress Progress: unchanged Progress Note: 10/07/20 10:45 Chest x-ray performed today shows new left mid to lower lung airspace disease. There may be slight airspace disease in the right base as well. This is compared to a chest x-ray that was performed on 09/29/2020. Medical decision making: I called the patient's primary care physician, Dr. Bird. I reviewed the patient's current condition and complaints and the pulse oximeter reading. I also reviewed the arterial blood gas reading and chest x-ray findings. He believes the patient can still be discharged to home. He would like me to contact respiratory therapy to see about giving her some CPAP at home. In addition, he would like me to give the patient steroid and antibiotics both here and for home. Discussed with : Martinez Counseled pt/family regarding: lab results, diagnosis, need for follow-up, rad results - Departure Departure Disposition: Home Clinical Impression: Pulmonary infiltrate Condition: Stable Critical Care Time: No Referrals: HENRIETTA BIRD MD [Primary Care Provider] - Additional Instructions: Follow the directions and use of CPAP at home. Take your antibiotic and steroid medication as prescribed. Call Dr. bird office on 10/10/2020 for further management. Return to emergency department if symptoms occur Prescriptions: Cefdinir 300 mg PO BID 7 Days #14 cap Prednisone 10 mg [Deltasone 10 mg] 10 mg PO BID #10 tablet
[2020-10-07] MEDS ORDERED: Rocephin 1000 MG INJ IM ONE (10:52)
[2020-10-07] MEDS ORDERED: solu-MEDROL 125 MG, Sterile H2O 10 ml 2 ML IM ONE ×2 (10:53)
[2020-10-07] MEDS ORDERED: solu-MEDROL ONE (11:01)
[2020-10-07] MEDS ORDERED: Sterile H2O 10 ml IJ ONE (11:01)
[2020-10-07] MEDS ORDERED: ROCEPHIN 1 Gm-D5w 50 ml Bag** 0 G/0 ML IVPB IV ONE (11:01)
[2020-10-07] MEDS ORDERED: Rocephin 1000 MG INJ ONE (11:10)
[2020-10-07] MEDS ORDERED: XYLOCAINE 1% HCL 20 ML MDV ONE (11:10)
[2020-10-07 11:24] VITALS: BP 140/77
[2020-10-07 11:56] VITALS: PULSE 113; O2SAT 96
== END 2020-10-07 12:14 | disposition home or self-care (01) ==
LOC: ED 09:14
DX: R91.8 Other nonspecific abnormal finding of lung field (principal); U07.1 COVID-19; Z99.81 Dependence on supplemental oxygen; I10 Essential (primary) hypertension; E78.00 Pure hypercholesterolemia, unspecified; J44.9 Chronic obstructive pulmonary disease, unspecified
CPT/HCPCS: 36600; 71045; 82375; 82803; 96372; 99284; J0696; J2930

== ENCOUNTER 2021-01-14 12:34 | Emergency (ER) | payer BC, MEDICARE ==
--- NOTE | 2021-01-14 12:39 | ERPHSYRPT ---
- History of Present Illness Time Seen by Provider: 01/14/21 12:39 Historian: patient Exam Limitations: no limitations Physician History: There is a 65-year-old white female who is a patient of Dr. Bird and presents with multiple vague complaints including mild abdominal pain with alternating constipation diarrhea. Is been going on for several days now. She denies chest pain. Patient has a known history of tachycardia and is on Lopressor for this. She is not short of breath. She feels she is under a lot of stress given the fact that her relatively recently because of COVID-19 infection. She herself has had it COVID-19 infection as has her son. Patient has a history of hypertension and elevated cholesterol as well. She had one episode of vomiting this morning. Timing/Duration: day(s) (Several days), intermittent Activities at Onset: none Quality: fullness Abdominal Pain Onset Location: generalized abdomen Pain Radiation: no radiation Severity of Pain-Max: mild Severity of Pain-Current: mild Modifying Factors: Improves With: vomiting Associated Symptoms: diarrhea (Intermittent episodes of diarrhea and const ipation over the last several days), vomiting (Once today) Previous symptoms: no prior history Allergies/Adverse Reactions: NKA Allergy (Verified 01/14/21 12:50) Home Medications: Atorvastatin Calcium 10 mg PO 169909/29/20 [History] lisinopriL [Lisinopril] 5 mg PO 169909/29/20 [History] Aspirin EC 81 mg [Ecotrin 81 mg] 81 mg PO DAILY 01/14/21 [History] Metoprolol Succinate 50 mg [Toprol Xl 50 MG] 50 mg PO DAILY 01/14/21 [History] Hx Tetanus, Diphtheria Vaccination/Date Given: Yes Hx Influenza Vaccination/Date Given: No Hx Pneumococcal Vaccination/Date Given: No Travel Risk - International Travel Have you traveled outside of the country in past 3 weeks: No - Coronavirus Screening Are you exhibiting any of the following symptoms?: No Close contact with a COVID-19 positive Pt in past 14-21 Days: No - Vaccine Status Have you recieved a Covid-19 vaccination: No - Review of Systems Constitutional: No Symptoms Eyes: No Symptoms Ears, Nose, & Throat: No Symptoms Respiratory: No Symptoms Cardiac: No Symptoms Abdominal/Gastrointestinal: Abdominal Pain (Mild generalized pressure), Vomiti ng, Diarrhea, Constipation Genitourinary Symptoms: No Symptoms Musculoskeletal: No Symptoms Skin: No Symptoms Neurological: No Symptoms Psychological: No Symptoms Endocrine: No Symptoms Hematologic/Lymphatic: No Symptoms Immunological/Allergic: No Symptoms All Other Systems: Reviewed and Negative - Past Medical History Pertinent Past Medical History: Yes Cardiac History: High Cholesterol, Hypertension - Past Surgical History Past Surgical History: No - Social History Smoking Status: Never smoker Exposure to second hand smoke: No Drug Use: none Patient Lives Alone: No - Nursing Vital Signs Nursing Vital Signs: Initial Vital Signs Temperature 98.5 F 01/14/21 12:40 Pulse Rate 119 H 01/14/21 12:40 Blood Pressure 159/90 01/14/21 12:40 O2 Sat by Pulse Oximetry 97 01/14/21 12:40 Pain Scale Pain Intensity 0 - Physical Exam General Appearance: no apparent distress, alert, anxiety Eye Exam: PERRL/EOMI, eyes nml inspection Ears, Nose, Throat Exam: normal ENT inspection, moist mucous membranes Neck Exam: normal inspection, non-tender, supple, full range of motion Respiratory Exam: normal breath sounds, lungs clear, airway intact, No chest tenderness, No respiratory distress Cardiovascular Exam: tachycardia Gastrointestinal/Abdomen Exam: soft, normal bowel sounds, tenderness (Vague generalized mild), No guarding, No rebound Pelvic Exam: not done Rectal Exam: not done Back Exam: normal inspection, normal range of motion, No CVA tenderness, No vertebral tenderness Extremity Exam: normal inspection, normal range of motion, pelvis stable Neurologic Exam: alert, oriented x 3, cooperative, aluminum polisher II-XII nml as tested, normal mood/affect, nml cerebellar function, nml station & gait, sensation nml Skin Exam: normal color, warm, dry Lymphatic Exam: No adenopathy SpO2 Interpretation: normal O2 Delivery: Room Air - Course Nursing assessment & vital signs reviewed: Yes Ordered Tests: Active Orders 24 hr Category Date Time Status IV Insertion STAT Care 01/14/21 13:08 Active ABDOMEN AND PELVIS W/0 CONTRAS [CT] Stat Exams 01/14/21 13:08 Taken AMYLASE Stat Lab 01/14/21 12:55 Completed CBC W DIFF Stat Lab 01/14/21 12:55 Completed CMP Stat Lab 01/14/21 12:55 Completed LIPASE Stat Lab 01/14/21 12:55 Completed Lactic Acid Stat Lab 01/14/21 13:08 Completed TROPONIN Q3H Lab 01/14/21 12:55 Completed TROPONIN Q3H Lab 01/14/21 16:15 Ordered TROPONIN Q3H Lab 01/14/21 19:15 Ordered TROPONIN Q3H Lab 01/14/21 22:15 Ordered TROPONIN Q3H Lab 01/15/21 01:15 Ordered UA W/RFX UR CULTURE Stat Lab 01/14/21 13:10 Completed Medication Summary Generic Name Dose Route Start Last Admin Trade Name Freq PRN Reason Stop Dose Admin Sodium Chloride 1,000 mls @ 999 mls/hr 01/14/21 13:08 01/14/21 13:12 Sodium Chloride 0.9% 1000 Ml IV 01/14/21 14:08 999 mls/hr .Q1H1M STA Administration Discontinued Medications Generic Name Dose Route Start Last Admin Trade Name Freq PRN Reason Stop Dose Admin Sodium Chloride Confirm 01/14/21 13:11 Sodium Chloride 0.9% 1000 Ml Administered 01/14/21 13:12 Dose 1,000 mls @ ud .ROUTE .K-MED ONE Lab/Rad Data: Laboratory Result Diagrams 01/14/21 12:55 01/14/21 12:55 Laboratory Results 01/14/21 01/14/21 01/14/21 Range/Units 13:10 13:08 12:55 WBC (4.0-10.5) K/mm3 RBC (4.1-5.4) M/mm3 Hgb (12.0-16.0) gm/dl Hct (35-47) % MCV (78-100) fl MCH (26-32) pg MCHC (32-36) g/dl RDW (11.5-14.0) % Plt Count (150-450) K/mm3 MPV (7.5-11.0) fl Gran % (36.0-66.0) % Eos # (Auto) (0-0.5) Absolute Lymphs (auto) (1.0-4.6) Absolute Monos (auto) (0.0-1.3) Lymphocytes % (24.0-44.0) % Monocytes % (0.0-12.0) % Eosinophils % (0.00-5.0) % Basophils % (0.0-0.4) % Absolute Granulocytes (1.4-6.9) Basophils # (0-0.4) Sodium (137-145) mmol/L Potassium (3.5-5.1) mmol/L Chloride (98-107) mmol/L Carbon Dioxide (22-30) mmol/L Anion Gap (5-15) MEQ/L BUN (7-17) mg/dL Creatinine (0.52-1.04) mg/dL Estimated GFR ML/MIN Glucose (74-106) mg/dL Lactic Acid 2.9 H (0.4-2.0) Calcium (8.4-10.2) mg/dL Total Bilirubin (0.2-1.3) mg/dL AST (14-36) U/L ALT (0-35) U/L Alkaline Phosphatase (38-126) U/L Troponin I < 0.012 (0.000-0.034) ng/mL Serum Total Protein (6.3-8.2) g/dL Albumin (3.5-5.0) g/dL Amylase (30-110) U/L Lipase (23-300) U/L Urine Color COLORLESS (YELLOW) Urine Appearance CLEAR (CLEAR) Urine pH 7.0 (5-6) Ur Specific Selby 1.002 (1.005-1.025) Urine Protein NEGATIVE (Negative) Urine Ketones NEGATIVE (NEGATIVE) Urine Blood SMALL (0-5) Sarbjit/ul Urine Nitrite NEGATIVE (NEGATIVE) Urine Bilirubin NEGATIVE (NEGATIVE) Urine Urobilinogen NEGATIVE (0-1) mg/dL Ur Leukocyte Esterase NEGATIVE (NEGATIVE) Urine WBC (Auto) NONE (0-5) /HPF Urine RBC (Auto) NONE (0-2) /HPF U Epithel Cells (Auto) NONE (FEW) /HPF Urine Bacteria (Auto) NONE (NEGATIVE) /HPF Urine Culture Reflexed NO (NO) Urine Glucose NEGATIVE (NEGATIVE) mg/dL 01/14/21 01/14/21 Range/Units 12:55 12:55 WBC 16.8 H (4.0-10.5) K/mm3 RBC 4.66 (4.1-5.4) M/mm3 Hgb 13.0 (12.0-16.0) gm/dl Hct 41.5 (35-47) % MCV 89.1 (78-100) fl MCH 27.9 (26-32) pg MCHC 31.3 L (32-36) g/dl RDW 14.6 H (11.5-14.0) % Plt Count 423 (150-450) K/mm3 MPV 10.5 (7.5-11.0) fl Gran % 71.9 H (36.0-66.0) % Eos # (Auto) 0.01 (0-0.5) Absolute Lymphs (auto) 3.65 (1.0-4.6) Absolute Monos (auto) 1.04 (0.0-1.3) Lymphocytes % 21.7 L (24.0-44.0) % Monocytes % 6.2 (0.0-12.0) % Eosinophils % 0.1 (0.00-5.0) % Basophils % 0.1 (0.0-0.4) % Absolute Granulocytes 12.11 H (1.4-6.9) Basophils # 0.02 (0-0.4) Sodium 136 L (137-145) mmol/L Potassium 4.0 (3.5-5.1) mmol/L Chloride 100 (98-107) mmol/L Carbon Dioxide 20 L (22-30) mmol/L Anion Gap 19.6 H (5-15) MEQ/L BUN 7 (7-17) mg/dL Creatinine 0.66 (0.52-1.04) mg/dL Estimated GFR > 60.0 ML/MIN Glucose 141 H (74-106) mg/dL Lactic Acid (0.4-2.0) Calcium 10.5 H (8.4-10.2) mg/dL Total Bilirubin 0.50 (0.2-1.3) mg/dL AST 25 (14-36) U/L ALT 21 (0-35) U/L Alkaline Phosphatase 90 (38-126) U/L Troponin I (0.000-0.034) ng/mL Serum Total Protein 8.2 (6.3-8.2) g/dL Albumin 5.0 (3.5-5.0) g/dL Amylase 48 (30-110) U/L Lipase 101 (23-300) U/L Urine Color (YELLOW) Urine Appearance (CLEAR) Urine pH (5-6) Ur Specific Sel[place] (1.005-1.025) Urine Protein (Negative) Urine Ketones (NEGATIVE) Urine Blood (0-5) Sarbjit/ul Urine Nitrite (NEGATIVE) Urine Bilirubin (NEGATIVE) Urine Urobilinogen (0-1) mg/dL Ur Leukocyte Esterase (NEGATIVE) Urine WBC (Auto) (0-5) /HPF Urine RBC (Auto) (0-2) /HPF U Epithel Cells (Auto) (FEW) /HPF Urine Bacteria (Auto) (NEGATIVE) /HPF Urine Culture Reflexed (NO) Urine Glucose (NEGATIVE) mg/dL - Progress Progress: improved, re-examined Progress Note: 01/14/21 14:04 CAT scan of the abdomen pelvis shows no acute abnormality intra-abdominal E or in the pelvis. There is no evidence of bowel obstruction or diverticulitis. There is no gross mass appreciated. Medical decision making: This patient does have leukocytosis, mildly elevated lactic acid alternating episodes of constipation and diarrhea. We will place her on Cipro and Flagyl to treat clinical colitis. I will also send a prescription for Zofran medication as an antiemetic. Counseled pt/family regarding: lab results, diagnosis, need for follow-up, rad results - Departure Departure Disposition: Home Clinical Impression: Leukocytosis, Diarrhea Condition: Stable Critical Care Time: No Referrals: HENRIETTA BIRD MD [Primary Care Provider] - Follow up/PCP as directed Additional Instructions: Drink plenty of fluids. Do not advance your diet from liquids until you are tolerating them well. Take your antibiotics as prescribed. Follow-up with your primary care doctor on 01/16/2021 for further management. Take your medications as prescribed. Prescriptions: Ondansetron ODT 4 MG [Zofran Odt 4 mg] 4 mg PO Q6H PRN PRN #10 tablet PRN Reason: Vomiting Ciprofloxacin [Cipro 500 MG] 500 mg PO BID #14 tablet Metronidazole 500 mg [Flagyl 500 MG] 500 mg PO TID #21 tablet
[2021-01-14] MEDS ORDERED: Sodium Chloride 0.9% 1000 ML 1,000 ML IV STA (13:08)
[2021-01-14] MEDS ORDERED: Sodium Chloride 0.9% 1000 ML 1,000 ML ONE (13:11)
[2021-01-14 13:32] LABS: Absolute Neutrophil Ct (ANC) 12.11 (1.4-6.9); BASOPHIL % 0.1 % (0.0-0.4); Basophil (Absolute #) 0.02 (0-0.4); Eosinophil % 0.1 % (0.00-5.0); Eosinophil (Absolute #) 0.01 (0-0.5); Hematocrit 41.5 % (35-47); Lymphocyte (Absolute #) 3.65 (1.0-4.6); Lymphocytes % 21.7 % (24.0-44.0); Mean Cell Volume 89.1 fl (78-100); Mean Corpuscular Hemoglobin 27.9 pg (26-32); Mean Corpuscular Hgb Concent. 31.3 g/dl (32-36); Mean Platelet Volume 10.5 fl (7.5-11.0); Monocyte (Absolute #) 1.04 (0.0-1.3); Monocytes % 6.2 % (0.0-12.0); Neutrophil % 71.9 % (36.0-66.0); Platelet Count 423 K/mm3 (150-450); Red Blood Count 4.66 M/mm3 (4.1-5.4); Red Cell Distribution Width 14.6 % (11.5-14.0); White Blood Count 16.8 K/mm3 (4.0-10.5)
[2021-01-14 13:41] VITALS: BP 148/80; PULSE 100; O2SAT 99
[2021-01-14 13:44] LABS: Appearance CLEAR (CLEAR); Bilirubin NEGATIVE (NEGATIVE); Blood SMALL Ery/ul (0-5); Glucose NEGATIVE (NEGATIVE); Ketones NEGATIVE (NEGATIVE); Leukocyte Esterase NEGATIVE (NEGATIVE); Nitrite NEGATIVE (NEGATIVE); Protein,Urine Dip NEGATIVE (Negative); Specific Gravity 1.002 (1.005-1.025); Urobilinogen NEGATIVE mg/dL (0-1)
[2021-01-14 13:44] LABS: ALKALINE PHOSPHATASE 90 U/L (38-126); AMYLASE 48 U/L (30-110); ANION GAP 19.6 MEQ/L (5-15); BLOOD UREA NITROGEN 7 mg/dL (7-17); CHLORIDE 100 mmol/L (98-107); Calcium 10.5 mg/dL (8.4-10.2); Carbon Dioxide 20 mmol/L (22-30); Creatinine 1 0.66 mg/dL (0.52-1.04); EST GLOMERULAR FILTRATION RATE > 60.0 ML/MIN; Glucose 141 mg/dL (74-106); LIPASE 101 U/L (23-300); SGOT/AST 25 U/L (14-36); SGPT/ALT 21 U/L (0-35); SODIUM 136 mmol/L (137-145); Total Protein 8.2 g/dL (6.3-8.2)
[2021-01-14] MEDS ORDERED: Flagyl 500 MG PO ONE (14:08)
[2021-01-14] MEDS ORDERED: Levofloxacin 500 MG Tablet PO ONE (14:08)
[2021-01-14] MEDS ORDERED: Levofloxacin 500 MG Tablet ONE (14:11)
[2021-01-14] MEDS ORDERED: Flagyl 500 MG ONE (14:11)
--- NOTE | 2021-01-14 18:16 | XRAY ---
Indication: Right upper quadrant pain and diarrhea. Multiple contiguous axial images obtained through the abdomen and pelvis without contrast. Comparison: None. Lung bases demonstrates mild bilateral peripheral groundglass airspace opacities. No effusion. Incidental right base calcified granuloma. Heart not enlarged. Noncontrasted stomach and bowel loops nonobstructed. No free fluid/air. Remaining liver, gallbladder, pancreas, spleen, adrenal glands, kidneys, ureters, bladder, and uterus appear unremarkable for noncontrast exam. Minimal scattered aortoiliac calcifications without AAA. Osseous structures intact with mild L4-L5 degenerative disc disease. No ventral or inguinal hernias. Impression: 1. Bibasilar peripheral groundglass airspace disease. Appearance improved with respect to CT chest September 30, 2020. 2. Remaining CT abdomen/pelvis without contrast exam is negative. Comment: Preliminary interpretation made by [facility]. No critical discrepancy.
== END 2021-01-14 14:20 | disposition home or self-care (01) ==
LOC: ED 12:34
DX: D72.829 Elevated white blood cell count, unspecified (principal); R19.7 Diarrhea, unspecified; I10 Essential (primary) hypertension; E78.5 Hyperlipidemia, unspecified; R11.11 Vomiting without nausea; Z86.16 Personal history of COVID-19
CPT/HCPCS: 36000; 36415; 74176; 80053; 81001; 82150; 83605; 83690; 84484; 85025; 96360; 99284; A9270-GY